=== PATIENT | female | born 1975 | race Caucasian/White ===

== ENCOUNTER 2022-06-21 08:14 | Emergency (ER) | payer SELFPAY ==
--- NOTE | 2022-06-21 10:25 | Emergency Department Report ---
ED ENT HPI - General Chief complaint: Skin/Abscess/Foreign Body Stated complaint: TOOTH PAIN/INFECTED Time Seen by Provider: 06/21/22 09:35 Source: patient Mode of arrival: Ambulatory Limitations: No Limitations - History of Present Illness Initial comments: 46-year-old black female with no past medical history presents to the emergency department for evaluation of dental pain. She states that she has had a severe toothache for the past several days, developed some swelling to tooth, then had some drainage from swelling which improved the pain. She states that pain is mostly resolved but she still has some swelling and redness to the area. She denies fever or shortness of breath. MD complaint: tooth pain -: Gradual, week(s) (4-5) Location: tooth # (3) Severity: mild, moderate Severity scale (0 -10): 10 Quality: aching Consistency: now resolved Worsens with: other (Palpation or chewing) Associated Symptoms: gum swelling, toothache. denies: fever, cough, pain with swallowing, sore throat, tinnitus, hearing loss, discharge from ear, rhinorrhea - Related Data Previous Rx's Medication Instructions Recorded Last Taken Type Clindamycin [Clindamycin CAP] 300 mg PO Q8H 10 Days #30 cap 06/21/22 Unknown Rx Ketorolac [Toradol] 10 mg PO Q6H PRN #12 tab 06/21/22 Unknown Rx Allergies Allergy/AdvReac Type Severity Reaction Status Date / Time Penicillins Allergy Headache Verified 06/21/22 08:48 ED Dental HPI - General Chief complaint: Skin/Abscess/Foreign Body Stated complaint: TOOTH PAIN/INFECTED Time Seen by Provider: 06/21/22 09:35 Source: patient Mode of arrival: Ambulatory Limitations: No Limitations - Related Data Previous Rx's Medication Instructions Recorded Last Taken Type Clindamycin [Clindamycin CAP] 300 mg PO Q8H 10 Days #30 cap 06/21/22 Unknown Rx Ketorolac [Toradol] 10 mg PO Q6H PRN #12 tab 06/21/22 Unknown Rx Allergies Allergy/AdvReac Type Severity Reaction Status Date / Time Penicillins Allergy Headache Verified 06/21/22 08:48 ED Review of Systems ROS: Stated complaint: TOOTH PAIN/INFECTED Other details as noted in HPI Comment: All other systems reviewed and negative Constitutional: denies: chills, fever, malaise, weakness Eyes: denies: eye pain ENT: dental pain. denies: ear pain, congestion Respiratory: denies: shortness of breath Cardiovascular: denies: chest pain, palpitations Gastrointestinal: denies: abdominal pain, nausea, vomiting Neurological: denies: headache ED Past Medical Hx - Past Medical History Previous Medical History?: No - Surgical History Past Surgical History?: No - Medications Home Medications: Home Medications Medication Instructions Recorded Confirmed Last Taken Type Clindamycin [Clindamycin CAP] 300 mg PO Q8H 10 Days #30 cap 06/21/22 Unknown Rx Ketorolac [Toradol] 10 mg PO Q6H PRN #12 tab 06/21/22 Unknown Rx ED Physical Exam - General Limitations: No Limitations General appearance: alert, in no apparent distress - Head Head exam: Present: atraumatic, normocephalic - Eye Eye exam: Present: normal appearance. Absent: conjunctival injection - Expanded ENT Exam Expanded Teeth exam: Present: dental tenderness # (3), other (Noted to have erythema, isaac ma, and draining abscess to the gum surrounding tooth #3.) Throat exam: Positive: normal inspection - Neck Neck exam: Present: normal inspection. Absent: lymphadenopathy - Respiratory Respiratory exam: Absent: respiratory distress - Cardiovascular Cardiovascular Exam: Present: regular rate - GI/Abdominal GI/Abdominal exam: Absent: distended - Extremities Exam Extremities exam: Present: normal inspection - Back Exam Back exam: Present: normal inspection - Neurological Exam Neurological exam: Present: alert, oriented X3, normal gait - Psychiatric Psychiatric exam: Present: normal affect, normal mood - Skin Skin exam: Present: warm, dry, intact, normal color ED Course Vital Signs 06/21/22 06/21/22 08:44 10:30 Temperature 99.1 F 98.4 F Pulse Rate 71 81 Respiratory 18 16 Rate Blood Pressure 148/79 136/86 [Left] O2 Sat by Pulse 99 100 Oximetry ED Medical Decision Making - Medical Decision Making 46-year-old black female with no past medical history presents to the emergency department for evaluation of dental pain. She states that she has had a severe toothache for the past several days, developed some swelling to tooth, then had some drainage from swelling which improved the pain. She states that pain is mostly resolved but she still has some swelling and redness to the area. She denies fever or shortness of breath. Symptoms and exam consistent with dental abscess. Patient discharged home with clindamycin and Toradol to use as directed and was advised to follow-up with loren rajan for further evaluation and management. She is advised to return to the emergency department as needed. She verbalizes understanding of and agreement with plan of care. Critical care attestation.: If time is entered above; I have spent that time in minutes in the direct care of this critically ill patient, excluding procedure time. ED Disposition Clinical Impression: Dental abscess Disposition: HOME / SELF CARE / HOMELESS Is pt being admited?: No Does the pt Need Aspirin: No Condition: Stable Instructions: Dental Abscess, [id number] Additional Instructions: Take medications as prescribed. Follow-up with dentist for further evaluation and management. Return to the emergency department as needed. Prescriptions: Clindamycin [Clindamycin CAP] 300 mg PO Q8H 10 Days #30 cap Ketorolac [Toradol] 10 mg PO Q6H PRN #12 tab PRN Reason: Pain Referrals: [facility] [Outside] - 3-5 Days [facility] [Outside] - 3-5 Days [facility] [Outside] - 3-5 Days [facility] [Outside] - 3-5 Days Forms: Work/School Release Form(ED) Time of Disposition: 10:24
[2022-06-21 10:59] VITALS: BP 136/86
== END 2022-06-21 18:51 | disposition home or self-care (01) ==
LOC: ED 08:14
DX: K04.7 Periapical abscess without sinus (principal); Z88.0 Allergy status to penicillin
CPT/HCPCS: 99282